=== PATIENT | male | born 1955 | race Caucasian/White ===

== ENCOUNTER → 2018-04-27 | Day surgery (SDC) | payer OTHER ==
[~2018-04-27] MED LIST: ALEVE220 M1 PO; CARVEDILOL12.5 MG PO; GLUCOTROL XL10 MG PO; KEFLEX500 MG PO; LIDOCAINE HCL 2% LOCAL INJ 5 ML SDV VIAL INJ ONE; LOSARTAN POTASS25 MG PO; METFORMIN HCL500 M2 PO; MIDAZOLAM HCL 2 MG/2 ML VIAL ONE; PROPOFOL IV EMULSION 10 MG/ML 50 ML VIAL ONE; SILVADENE20 GM TOP; SIMVASTATIN20 MG PO; TRIAMCINOLONE A15 G4 TP
[2018-04-27 11:15] VITALS: BP 114/62
== END | disposition home or self-care (01) ==
LOC: OR 07:48
PROVIDERS: ATTEND Internal Medicine Gastroenterology
DX: Z12.11 Encounter for screening for malignant neoplasm of colon (principal); D12.2 Benign neoplasm of ascending colon; D12.3 Benign neoplasm of transverse colon; D12.4 Benign neoplasm of descending colon; D12.5 Benign neoplasm of sigmoid colon; D12.8 Benign neoplasm of rectum; K64.8 Other hemorrhoids; G47.33 Obstructive sleep apnea (adult) (pediatric); I10 Essential (primary) hypertension; E78.5 Hyperlipidemia, unspecified; E11.9 Type 2 diabetes mellitus without complications; Z01.810 Encounter for preprocedural cardiovascular examination; Z79.84 Long term (current) use of oral hypoglycemic drugs; Z68.42 Body mass index [BMI] 45.0-49.9, adult
CPT/HCPCS: 36415; 45384; 45385; 82948; 93005; J2001; J2250; 45378

== ENCOUNTER → 2019-07-08 | Day surgery (SDC) | payer OTHER ==
[2019-07-05 17:05] LABS: BASOPHILS # (AUTO) 0.1 (0.0-0.1); BASOPHILS % 0.7 % (0.0-1.0); EOSINOPHILS # (AUTO) 0.4 (0.0-0.4); EOSINOPHILS % 3.5 % (0.0-6.0); HEMOGLOBIN 13.2 g/dL (14.0-18.0); LYMPHOCYTES # (AUTO) 1.5 (1.0-3.2); LYMPHOCYTES % 14.9 % (18.0-39.1); MEAN CORPUSCULAR HEMOGLOBIN 27.6 pg (28-32); MEAN CORPUSCULAR HGB CONC 32.2 g/dL (31-35); MEAN CORPUSCULAR VOLUME 85.6 fL (81-99); MONOCYTES # (AUTO) 1.1 (0.2-0.8); MONOCYTES % 10.6 % (4.4-11.3); NEUTROPHILS # (AUTO) 7.1 (2.1-6.9); NEUTROPHILS % 69.7 % (38.7-80.0); PLATELET COUNT 240 x10e3/uL (140-360); RED BLOOD COUNT 4.79 x10e6/uL (4.3-5.7); RED CELL DISTRIBUTION WIDTH 13.6 % (11.7-14.4)
--- NOTE | 2019-07-05 17:22 | Diagnostic Imaging Report ---
EXAMINATION: CHEST 2 VIEWS INDICATION: Pre-operative COMPARISON: None FINDINGS: LINES/TUBES:None LUNGS:The lungs are well-inflated. No focal consolidation or pulmonary edema. PLEURA:No pleural effusion or pneumothorax. MEDIASTINUM:The cardiomediastinal silhouette appears normal in size and shape. BONES/SOFT TISSUES:No acute osseous injury. ABDOMEN:No free air under the diaphragm. IMPRESSION: No focal pneumonia or pulmonary edema. Signed by: Ángel Rincon MD on 07/05/2019 5:19 PM
[2019-07-05 17:29] LABS: ANION GAP 15.3 mmol/L (8-16); CALCIUM 9.7 mg/dL (8.4-10.2); CREATININE, SERUM 1.9 mg/dL (0.72-1.25); POTASSIUM 4.3 mmol/L (3.5-5.1)
[~2019-07-08] MED LIST changes: +BUPIVACAINE HCL 0.5% INJ 30 ML VIAL INJ ONE; +CEFAZOLIN SOD 1 GM/NS 50ML 100 ML IV ONE; +DEXAMETHASONE SOD PHOS INJ 4 MG/ML VIAL ONE; +KETOROLAC TROMETHAMINE 30 MG/ML VIAL ONE; -MIDAZOLAM HCL 2 MG/2 ML VIAL ONE; +NEOSTIGMINE 1 MG/ML 10ML VIAL ONE; +ONDANSETRON HCL INJ 2MG/ML 2ML 2 MG/ML VIAL ONE; +PROPOFOL IV EMULSION 10 MG/ML 20 ML VIAL ONE; -PROPOFOL IV EMULSION 10 MG/ML 50 ML VIAL ONE
--- OUTSIDE RECORDS SUMMARY | 2019-07-08 05:24 | XMS REPORT ---
Author Author [facility] Address Unknown Phone Unavailable Care Team Providers Care Transition Advisor Name Role Phone HOLLY SAMANIEGO Unavailable Unavailable Problems This patient has no known problems. Allergies, Adverse Reactions, Alerts This patient has no known allergies or adverse reactions. Medications This patient has no known medications. Results Test Description Test Time Test Comments Text Results Atomic Results Result Comments CHEST 2 VIEWS 2019-07-05 17:18:00 [facility] [address] [address] Patient Name: KALYN WILSON MR #: [id number] : 1955 Age/Sex: 63/M Req #: [id number] Adm Physician: Ordered by: HOLLY SAMANIEGO DPM Report #: [id number] Location: OR Room/Bed: Procedure: [id number] DX/CHEST 2 VIEWS Exam Date: Exam Time: REPORT STATUS: Signed EXAMINATION: CHEST 2 VIEWS INDICATION: Pre-operative COMPARISON: None FINDINGS: LINES/TUBES:None LUNGS:The lungs are well- inflated. No focal consolidation or pulmonary edema. PLEURA:No pleural effusion or pneumothorax. MEDIASTINUM:The cardiomediastinal silhouette appears normal in size and shape. BONES/SOFT TISSUES:No acute osseous injury. ABDOMEN:No free air under the diaphragm. IMPRESSION: No focal pneumonia or pulmonary edema. Signed by: Pramod Gaffney MD on 07/05/2019 5:19 PM Dictated By: PRAMOD GAFFNEY MD 18 Transcribed By: NED on 07/05/191718 COPY TO: HOLLY SAMANIEGO DPM
[2019-07-08 10:14] VITALS: BP 128/81
--- NOTE | 2019-07-08 17:55 | Operative Report ---
DATE OF PROCEDURE: 07/08/2019 SURGEON: Clinton Macdonald DPM ROOM NUMBER: [facility]. PREOPERATIVE DIAGNOSIS: Kimble fracture, 5th metatarsal, right foot. POSTOPERATIVE DIAGNOSIS: Kimble fracture, 5th metatarsal, right foot. TITLE OF THE OPERATION: Open reduction with internal fixation, 5th metatarsal, right foot. ANESTHESIA: General endotracheal. HEMOSTASIS: A right thigh tourniquet at 350 mmHg. PROCEDURE IN DETAIL: The patient was taken to the operating room in a mildly sedated state and placed on the operating table in supine position. Following induction of general anesthetic, the right lower extremity was elevated to 60 degrees to exsanguinate before inflating the pneumatic thigh tourniquet to 350 mmHg to create hemostasis. The right lower extremity was placed on the operating table prior to performing the following procedure: Procedure #1: ORIF of the 5th metatarsal, right foot. Under fluoroscopy, the Kimble fracture was identified, noted to be significantly open and no bone healing had occurred. A linear longitudinal incision was made overlying the proximal 5th met base all the way to an area just distal to the Kimble fracture, which was distal to the proximal joint, but certainly still within the proximal one-half of the 5th metatarsal. The bones seem to line up well when reorganize, but was very unstable. A cannulated screw was advanced 4.0 in nature from proximal 5th met base all the way through the medial cortex of the 5th metatarsal distal to the fracture, which allowed for excellent stabilization. A 5th metatarsal compression plate was applied to the dorsal and lateral aspect of the 5th metatarsal at this point, also showing excellent fixation and stable level configuration and construct. The area was irrigated with copious amounts of sterile saline solution. Deep closure with 3-0 Vicryl, subcutaneous closure with 4-0 Vicryl, and skin closure with 4-0 nylon. The areas of surgery were then blocked with 0.5 Marcaine and Decadron [place]. Release of the pneumatic thigh tourniquet showed a normal hyperemic flush to all digits of the right foot. The patient tolerated both anesthetic and procedure very well. SARAH Pate/MODL /[id number]
== END | disposition home or self-care (01) ==
LOC: OR 05:21
PROVIDERS: ATTEND Podiatrist Foot Surgery
DX: S92.351A Displaced fracture of fifth metatarsal bone, right foot, initial encounter for closed fracture (principal); M79.671 Pain in right foot; Z01.810 Encounter for preprocedural cardiovascular examination; Z01.812 Encounter for preprocedural laboratory examination; Z01.811 Encounter for preprocedural respiratory examination; Z88.7 Allergy status to serum and vaccine; Z96.652 Presence of left artificial knee joint; I10 Essential (primary) hypertension; E11.9 Type 2 diabetes mellitus without complications; G47.33 Obstructive sleep apnea (adult) (pediatric); Z79.84 Long term (current) use of oral hypoglycemic drugs
CPT/HCPCS: 28485; 36415 ×2; 71046; 80048; 82948; 85025; 93005; C1713 ×5; J0690; J1100; J1885; J2001; J2405; J2704; J2710; Q4100

== ENCOUNTER 2020-04-26 16:58 | Emergency (ER) | payer OTHER ==
[~2020-04-26] VITALS: Ht 172.7 cm; Wt 174.2 kg
[~2020-04-26 16:58] MED LIST changes: -BUPIVACAINE HCL 0.5% INJ 30 ML VIAL INJ ONE; -CEFAZOLIN SOD 1 GM/NS 50ML 100 ML IV ONE; -DEXAMETHASONE SOD PHOS INJ 4 MG/ML VIAL ONE; -KETOROLAC TROMETHAMINE 30 MG/ML VIAL ONE; -LIDOCAINE HCL 2% LOCAL INJ 5 ML SDV VIAL INJ ONE; -NEOSTIGMINE 1 MG/ML 10ML VIAL ONE; -ONDANSETRON HCL INJ 2MG/ML 2ML 2 MG/ML VIAL ONE; -PROPOFOL IV EMULSION 10 MG/ML 20 ML VIAL ONE
--- OUTSIDE RECORDS SUMMARY | 2020-04-26 17:30 | XMS REPORT | Continuity of Care Document ---
Author Author [facility] Address [address] [place] [address] [place] [id number] Phone Unavailable Care Team Providers Care Science Liaison Name Role Phone HOLLY SAMANIEGO Attphys Unavailable Problems This patient has no known problems. Allergies, Adverse Reactions, Alerts This patient has no known allergies or adverse reactions. Medications This patient has no known medications. Procedures This patient has no known procedures. Results Test Description Test Time Test Comments Results Result Comments Source CHEST 2 VIEWS 2019-07-05 17:18:00 [facility] [address] [place], [place] [address] Patient Name: KALYN WILSON MR #: [id number] : 1955 Age/Sex: 63/M Req #: [id number] Adm Physician: Ordered by: HOLLY SAMANIEGO DPM Report #: [id number] Location: OR Room/Bed: Procedure: [id number] DX/CHEST 2 VIEWS Exam Date: Exam Time: REPORT STATUS: Signed EXAMINATION: CHEST 2 VIEWS INDICATION: Pre- operative COMPARISON: None FINDINGS: LINES/TUBES:None LUNGS:The lungs are well-inflated. No focal consolidation or pulmonary edema. PLEURA:No [...]
--- NOTE | 2020-04-26 18:20 | Emergency Department Note ---
History of Present Illnes History of Present Illness Chief Complaint: COVID PUI History of Present Illness This is a 64 year old male in from home with complaints of shortness of breath, cough, fever and general body aches since Thursday. Patient reports he went to get covid testing two days ago but has not received results yet. Patient is slightly short of breath on exertion but no distress noted at rest. Patient's oxygen saturation in triage is 97% on room air. pt states both daughters positive for covid Historian: Patient Arrival Mode: Car Claim Processing Specialist Required: No Onset (how long ago): day(s) (5) Location: all over Quality: fever, chills, body aches, cough Radiation: Reports non-radiation Severity: mild Onset quality: gradual Duration (how long): day(s) (6) Timing of current episode: constant Progression: unchanged Chronicity: new Context: Reports other (pt with family members who are positive for covid) Relieving factors: none Exacerbating factors: other (cough) Associated symptoms: Reports denies other symptoms Past Medical/Family History Physician Review I have reviewed the patient's past medical and family history. Any updates have been documented here. Past Medical History Recent Fever: Yes Clinical Suspicion of Infectio: Yes New/Unexplained Change in Ment: No Past Medical History: Hypertension, Diabetes, Hyperlipedemia Other Medical History: High cholesterol Venous stasis Other Surgery: removal of cyst from neck L knee surgery Social History Smoking Cessation: Never Smoker Alcohol Use: Occasional Any Illegal Drug Use: No Other Last Tetanus: OOD Review of Systems Review of Systems Constitutional: Reports as per HPI EENTM: Reports no symptoms Cardiovascular: Reports no symptoms Respiratory: Reports as per HPI Gastrointestinal: Reports no symptoms Genitourinary: Reports no symptoms Musculoskeletal: Reports no symptoms Integumentary: Reports no symptoms Neurological: Reports no symptoms Psychological: Reports no symptoms Endocrine: Reports no symptoms Hematological/Lymphatic: Reports no symptoms Physical Exam Related Data Allergies: Uncoded Allergies: FLU VACCINE (Allergy, Unknown, 11/19/16) Triage Vital Signs Vital Signs Date Time Temp Pulse Resp B/P (MAP) Pulse Ox O2 Delivery O2 Flow Rate FiO2 04/26/20 17:10 99.4 100 22 119/58 97 Room Air Vital signs reviewed: Yes Physical Exam CONSTITUTIONAL Constitutional: Present well-developed, Present well-nourished HENT HENT: Present normocephalic, Present atraumatic, Present oropharynx clear/moist, Present nose normal HENT L/R: Present left ext ear normal, Present right ext ear normal EYES Eyes: Reports PERRL, Reports conjunctivae normal NECK Neck: Present ROM normal PULMONARY Pulmonary: Present effort normal, Present rhonchi (mild bases), Present other (mild decreased breath sounds bilateral bases) CARDIOVASCULAR Cardiovascular: Present regular rhythm, Present heart sounds normal, Present capillary refill normal, Present normal rate GASTROINTESTINAL Abdominal: Present soft, Present nontender, Present bowel sounds normal GENITOURINARY Genitourinary: Present exam deferred SKIN Skin: Present warm, Present dry MUSCULOSKELETAL Musculoskeletal: Present ROM normal NEUROLOGICAL Neurological: Present alert, Present oriented x 3, Present no gross motor or sensory deficits PSYCHOLOGICAL Psychological: Present mood/affect normal, Present judgement normal Results Imaging Imaging results reviewed: Yes Impressions Procedure: [id number] DX/CHEST SINGLE (PORTABLE) Exam Date: 04/26/20 Exam Time: 1832 REPORT STATUS: Signed EXAMINATION: CHEST SINGLE (PORTABLE) INDICATION: ^Y ^sob,covid suspect ^[id number] ^1833 ^Y COMPARISON: Chest x-ray on 07/05/2019. FINDINGS: TUBES and LINES: None. LUNGS: There is diffuse interstitial lung markings and patchy and hazy opacification the bilateral lung bases.. PLEURA: No pleural effusion or pneumothorax. HEART AND MEDIASTINUM: The cardiomediastinal silhouette is unremarkable. BONES AND SOFT TISSUES: No acute osseous lesion. Soft tissues are unremarkable. UPPER ABDOMEN: No free air under the diaphragm. IMPRESSION: Patchy and hazy opacification bilateral lung bases which most likely represents atelectasis and/or multifocal pneumonia in the proper clinical context. There is probable superimposed pulmonary edema. Signed by: Estiven Herrera MD on 04/26/2020 6:59 PM Dictated By: ESTIVEN HERRERA MD 58 Transcribed By: NED on 04/26/201858 COPY TO: MO FONG MD~ Assessment & Plan Medical Decision Making MDM pt with covid symptoms and exposure to family members with covid cxr ordered to eval for pneumonia Assessment & Plan Final Impression: (1) Suspected 2019 novel coronavirus infection (2) Viral pneumonia Depart Disposition: HOME, SELF-CARE Last Vital Signs Date Time Temp Pulse Resp B/P (MAP) Pulse Ox O2 Delivery O2 Flow Rate FiO2 04/26/20 17:10 99.4 100 22 119/58 97 Room Air Home Meds Reported Medications Losartan Potassium (LOSARTAN POTASSIUM) 25 Mg Tablet, 50 MG PO DAILY 11/19/16 Simvastatin (SIMVASTATIN) 20 Mg Tablet, 20 MG PO DAILY, EA 11/19/16 Metformin Hcl (METFORMIN HCL ER) 500 Mg Tab.er.24, 500 MG PO TID, #60 TAB 11/19/16 Triamcinolone Acetonide (TRIAMCINOLONE ACETONIDE) 15 Gm Oint...g., 15 GM TP PRN, G 11/19/16 MO FONG MD Apr 26, 2020 18:20
--- NOTE | 2020-04-26 19:02 | Diagnostic Imaging Report ---
EXAMINATION: CHEST SINGLE (PORTABLE) INDICATION: ^Y ^sob,covid suspect ^[id number] ^1833 ^Y COMPARISON: Chest x-ray on 07/05/2019. FINDINGS: TUBES and LINES: None. LUNGS: There is diffuse interstitial lung markings and patchy and hazy opacification the bilateral lung bases.. PLEURA: No pleural effusion or pneumothorax. HEART AND MEDIASTINUM: The cardiomediastinal silhouette is unremarkable. BONES AND SOFT TISSUES: No acute osseous lesion. Soft tissues are unremarkable. UPPER ABDOMEN: No free air under the diaphragm. IMPRESSION: Patchy and hazy opacification bilateral lung bases which most likely represents atelectasis and/or multifocal pneumonia in the proper clinical context. There is probable superimposed pulmonary edema. Signed by: Estiven Pa MD on 04/26/2020 6:59 PM
[2020-04-26 19:19] VITALS: BP 129/89
== END 2020-04-26 19:22 | disposition home or self-care (01) ==
LOC: ER 17:28
DX: J12.9 Viral pneumonia, unspecified (principal); R50.9 Fever, unspecified; R05 Cough; R06.02 Shortness of breath; I10 Essential (primary) hypertension; E11.9 Type 2 diabetes mellitus without complications; E78.5 Hyperlipidemia, unspecified; E78.00 Pure hypercholesterolemia, unspecified
CPT/HCPCS: 71045; 99283